=== PATIENT | male | born 1995 | race Caucasian/White ===

== ENCOUNTER 2016-08-21 22:01 | Emergency (ER) | payer BC ==
[~2016-08-21] VITALS: Ht 188 cm; Wt 76.0 kg
[2016-08-21 22:10] VITALS: TEMP 36.7; Ht 188 cm; Wt 76.0 kg
[2016-08-22] VITALS: O2SAT 99
[2016-08-22] MEDS ORDERED: SODIUM CHLORIDE 0.9% 1000ML 1,000 ML IV ONE
[2016-08-22] MEDS ORDERED: LORAZEPAM 2 MG/ML 1 ML VIAL IV STA
[2016-08-22 00:35] LABS: BASO % 0.4 %; BASO ABS # 0.04 K/uL (0-0.2); COMPLETE YES; EOS % 0.7 %; HEMATOCRIT 47.2 % (42-52); IG% 0.4 %; LYMPH % 27.1 %; LYMPH ABS # 2.56 K/uL (1.2-3.4); MEAN CELL VOLUME 90.6 fL (80-100); MEAN CORPUSCULAR HEMOGLOBIN 32.6 pg (25-34); MEAN PLATELET VOLUME 9.7 fL (7.4-10.4); MONO % 8.1 %; NEUT % 63.3 %; PLATELET COUNT 243 K/uL (130-400); RED BLOOD COUNT 5.21 M/uL (4.7-6.1); WHITE BLOOD COUNT 9.44 K/uL (4.8-10.8)
[2016-08-22 00:45] LABS: POINT OF CARE TROPONIN I 0.02 ng/ml (0-0.045)
[2016-08-22 00:53] LABS: BUN/CREATININE RATIO 9.6 (10-20); CALCIUM 9.6 mg/dl (8.5-10.1); CREATININE 1.1 mg/dl (0.60-1.40); MAGNESIUM 2.2 mg/dl (1.8-2.4); POTASSIUM 3.7 mmol/L (3.5-5.1)
[2016-08-22 01:04] LABS: ALB/GLOB RATIO 1.6 (0.9-2); THYROID STIMULATING HORMONE 1.77 uIu/ml (0.300-4.500)
[2016-08-22 01:26] LABS: LYME DISEASE AB IGG NEG (NEG); LYME DISEASE AB IGM NEG (NEG)
[2016-08-22 04:10] VITALS: BP 152/90; PULSE 92; O2SAT 97
--- NOTE | 2016-08-22 06:02 | EMERGENCY ROOM VISIT NOTE ---
History First contact with patient: 23:54 Chief Complaint: TACHYCARDIA Stated Complaint: RACING HEART Nursing Triage Summary: Pt reports in the past year a few times his heart feels like it is racing. Pt reports that it would last a few minutes then stop. Today patient reports that his heart did not stop racing. History of Present Illness The patient is a 21 year old male who presents to the Emergency Room with complaints of palpitations that began earlier this evening. The patient states that about 3 hours ago he felt like his heart was racing. He has had similar symptoms like this in the past, and he states that they often resolve after 4 or 5 minutes. His symptoms tonight lasted about 25 minutes before resolving. During this time he became very concerned and contacted his family who asked him to come to the ER for evaluation. The patient does not report other significant symptoms such as headache, lightheadedness, dizziness, neck pain, chest pain, shortness of breath, or abdominal pain. He does not report recent URI symptoms and does not take medication on regular basis. No recent travel history or risk factors for DVT/PE. He is currently asymptomatic. He rates his current discomfort a 5/10. Review of Systems More than 10 systems were reviewed and otherwise negative with the exception of history of present illness. Past Medical/Surgical History No chronic medical disease Family History No pertinent family history Social History Smoking Status: Never Smoker Occupation Status: [employer] student Current/Historical Medications No Active Prescriptions or Reported Meds Allergies Coded Allergies: No Known Allergies (Unverified , 08/21/16) Physical Exam Vital Signs Date Time Temp Pulse Resp B/P Pulse Ox O2 Delivery O2 Flow Rate FiO2 08/22/16 04:10 92 18 152/90 97 08/22/16 03:17 81 19 164/91 96 Room Air 08/22/16 01:17 94 19 168/89 97 Room Air 08/22/16 00:27 Room Air 08/22/16 00:00 99 08/22/16 00:00 99 Room Air 08/21/16 23:58 99 20 169/102 99 Room Air 08/21/16 22:10 36.7 98 16 172/102 98 Room Air Pain Rating (0-10): 0 Physical Exam VITALS: Vitals are noted on the nurse's note and reviewed by myself. Vital signs stable. GENERAL: Well-developed, well-nourished, white male, who is in no acute distress and resting comfortably. Patient is cooperative with the examination. HEAD: Normocephalic atraumatic. EARS: External ear normal. External auditory canals clear, tympanic membranes pearly aldridge without erythema or effusion bilaterally. EYES: Pupils equal round and reactive to light and accommodation. Conjunctivae without injection, sclerae without icterus. Extraocular movements intact. NOSE: Patent, turbinates without inflammation or discharge. MOUTH: Mucous membranes moist. Tonsils are not enlarged. Pharynx without erythema, blood, or exudate. Uvula midline. Airway patent. NECK: Supple without nuchal rigidity. No lymphadenopathy. No thyromegaly. Cervical spine is nontender. HEART: Regular rate and rhythm without murmurs gallops or rubs. LUNGS: Clear to auscultation bilaterally without wheezes, rales or rhonchi. No retractions or accessory muscle use. ABDOMEN: Positive normal bowel sounds x 4. Soft, nontender, without masses or organomegaly. No guarding or rebound tenderness. MUSCULOSKELETAL: No muscle atrophy, erythema, or edema noted. Full range of motion without joint tenderness in all extremities. No tenderness to palpation. Normal gait. Strength 5/5 throughout. NEURO: Patient was alert and oriented to person place and time. CN II through XII grossly intact. Deep tendon reflexes 2+ throughout. No focal neurological deficits SKIN: The skin was without rashes, erythema, edema, or bruising. Capillary reflex less than 2 seconds. Medical Decision & Procedures Laboratory Results 08/22/16 00:20 Red Blood Count 5.21, Mean Corpuscular Volume 90.6, Mean Corpuscular Hemoglobin 32.6, Mean Corpuscular Hemoglobin Concent 36.0, Mean Platelet Volume 9.7, Neutrophils (%) (Auto) 63.3, Lymphocytes (%) (Auto) 27.1, Monocytes (%) (Auto) 8.1, Eosinophils (%) (Auto) 0.7, Basophils (%) (Auto) 0.4, Neutrophils # (Auto) 5.97, Lymphocytes # (Auto) 2.56, Monocytes # (Auto) 0.76, Eosinophils # (Auto) 0.07, Basophils # (Auto) 0.04 08/22/16 00:20 Test 08/22/16 00:20 08/22/16 00:08/22/16 01:57 White Blood Count 9.44 K/uL (4.8-10.8) Red Blood Count 5.21 M/uL (4.7-6.1) Hemoglobin 17.0 g/dL (14.0-18.0) Hematocrit 47.2 % (42-52) Mean Corpuscular Volume 90.6 fL (80-100) Mean Corpuscular Hemoglobin 32.6 pg (25-34) Mean Corpuscular Hemoglobin Concent 36.0 g/dl (32-36) Platelet Count 243 K/uL (130-400) Mean Platelet Volume 9.7 fL (7.4-10.4) Neutrophils (%) (Auto) 63.3 % Lymphocytes (%) (Auto) 27.1 % Monocytes (%) (Auto) 8.1 % Eosinophils (%) (Auto) 0.7 % Basophils (%) (Auto) 0.4 % Neutrophils # (Auto) 5.97 K/uL (1.4-6.5) Lymphocytes # (Auto) 2.56 K/uL (1.2-3.4) Monocytes # (Auto) 0.76 K/uL (0.11-0.59) Eosinophils # (Auto) 0.07 K/uL (0-0.5) Basophils # (Auto) 0.04 K/uL (0-0.2) RDW Standard Deviation 41.2 fL (36.4-46.3) RDW Coefficient of Variation 12.5 % (11.5-14.5) Immature Granulocyte % (Auto) 0.4 % Immature Granulocyte # (Auto) 0.04 K/uL (0.00-0.02) Anion Gap 9.0 mmol/L (3-11) Est Creatinine Clear Calc Drug Dose 114.2 ml/min Estimated GFR () 110.6 Estimated GFR (Non- 95.5 BUN/Creatinine Ratio 9.6 (10-20) Calcium Level 9.6 mg/dl (8.5-10.1) Magnesium Level 2.2 mg/dl (1.8-2.4) Total Bilirubin 1.1 mg/dl (0.2-1) Aspartate Amino Transf (AST/SGOT) 12 U/L (15-37) Alanine Aminotransferase (ALT/SGPT) 24 U/L (12-78) Alkaline Phosphatase 71 U/L (45-117) Total Protein 8.2 gm/dl (6.4-8.2) Albumin 5.1 gm/dl (3.4-5.0) Globulin 3.1 gm/dl (2.5-4.0) Albumin/Globulin Ratio 1.6 (0.9-2) Lipase 98 U/L (73-393) Thyroid Stimulating Hormone (TSH) 1.770 uIu/ml (0.300-4.500) Lyme Disease IgG Antibody NEG (NEG) Lyme Disease IgM Antibody NEG (NEG) Bedside D-Dimer 6 ng/mlFEU (0-450) Bedside Troponin I 0.000 ng/ml (0-0.045) Medications Administered Medications (Trade) Dose Ordered Sig/Cris Route Start Time Stop Time Status Last Admin Dose Admin Sodium Chloride (Nss 1000ml) 1,000 ml @ 999 mls/hr Q1H1M ONCE IV 08/22/16 00:00 08/22/16 01:00 DC 08/22/16 00:40 999 MLS/HR Lorazepam (Ativan Inj) 1 mg NOW STAT IV 08/22/16 00:00 08/22/16 00:02 DC 08/22/16 00:39 1 MG ED Course Physical exam and history were performed. Nursing notes and EMR were reviewed. Patient appears to have episodes of palpitations that appeared to have resolved prior to arrival. EKG was performed and was normal sinus rhythm at 87 beats minute without evidence of ischemia or ectopy. IV access was established and labs were obtained. Chest x-ray was performed. The patient was hydrated and medicated as above. The patient was reevaluated multiple times with course of his stay. His blood work is as above and was reviewed. He does not have a significantly elevated white blood cell count, gross anemia, bandemia, or significant electrolyte imbalance. Lipase and transaminases are nondiagnostic. Troponin 2 is negative. D-dimer is negative. The patient's x-ray appears to show a significant amount of gas on the chest x- ray. Because of this I did elect to perform an abdominal series which was reviewed by myself and my attending physician. We do not see obvious signs of free air or obstructive process. Overall the patient appears stable for discharge home. His palpitations do not appear to correlate with an acute cardiopulmonary event. The patient symptoms could be related to stress or anxiety. I cannot rule out dysrhythmic events, however he was in normal sinus rhythm for several hours on the residential monitor. Because of this I do recommend he follow with his PCP in the next few days. The patient was otherwise invited back to the ER with any new, worsening, or concerning symptoms. The chart was completed utilizing [employer] Speech Voice Recognition Software. Grammatical errors, random word insertions, pronoun errors, and incomplete sentences are an occasional consequence of this system due to software limitations, ambient noise, and hardware issues. Any formal questions or concerns about the content, text, or information contained within the body of this dictation should be directly addressed to the provider for clarification. . Medical Decision Differential diagnosis includes, but is not limited to: Myocardial infarction, dysrhythmia, pericarditis, pneumothorax, aortic aneurysm/dissection, DVT/PE, anxiety, GERD, PUD, electrolyte imbalance, thyroid disorder, pneumonia, bronchitis, pancreatitis, and others Impression Primary Impression: Palpitations Departure Information Dispostion Home / Self-Care Condition GOOD Prescriptions No Active Prescriptions or Reported Meds Forms WORK / SCHOOL INSTRUCTIONS, HOME CARE DOCUMENTATION FORM, IMPORTANT VISIT INFORMATION Patient Instructions My [facility] Additional Instructions You were seen and evaluated today on an emergency basis only. This is not a substitute for, or an effort to provide, complete comprehensive medical care. It is not possible to recognize and treat all injuries or illnesses in a single emergency department visit. For this reason it is recommended that you followup with your primary physician or [facility] the next few days for recheck of your condition. Drink plenty of fluids and remain well hydrated. Avoid caffeine, nicotine, and alcohol as these can cause her symptoms. You are welcome to return to the emergency department anytime with new, worsening, or concerning symptoms.
--- NOTE | 2016-08-22 08:27 | DIAGNOSTIC IMAGING REPORT ---
CHEST ONE VIEW PORTABLE HISTORY: palpitations COMPARISON: None. FINDINGS: The lungs are clear. Cardiac silhouette is normal in size. No pleural effusions. No pneumothorax. IMPRESSION: No acute process. Electronically signed by: Lion Alvarado M.D. 08/22/2016 8:26 AM Dictated Date/Time: 08/22/2016 8:25 AM
--- NOTE | 2016-08-22 08:29 | DIAGNOSTIC IMAGING REPORT ---
ABDOMEN 2 VIEWS HISTORY: palpitations COMPARISON: None. FINDINGS: The lung bases are clear. No pneumoperitoneum. No pneumatosis. No renal calculi. Multiple mildly distended gas-filled loops of large and small bowel seen throughout the abdomen. IMPRESSION: Multiple mildly distended gas-filled loops of large and small bowel seen throughout the abdomen. This favors a mild ileus. Electronically signed by: Lion Alvarado M.D. 08/22/2016 8:27 AM Dictated Date/Time: 08/22/2016 8:26 AM
== END 2016-08-22 04:02 | disposition home or self-care (01) ==
LOC: C.EDB 22:04
DX: R00.2 Palpitations (principal)

== ENCOUNTER 2017-01-09 22:22 | Emergency (ER) | payer BC ==
[~2017-01-09] VITALS: Ht 188 cm; Wt 76.0 kg
[2017-01-09 22:28] VITALS: TEMP 36.3; Ht 188 cm; Wt 76.0 kg
[2017-01-09] MEDS ORDERED: SODIUM CHLORIDE 0.9% 1000ML 1,000 ML IV STA ×2 (22:47)
[2017-01-09 22:55] VITALS: O2SAT 98
[2017-01-09 23:11] LABS: BASO % 0.1 %; BASO ABS # 0.01 K/uL (0-0.2); COMPLETE YES; EOS % 0.4 %; HEMATOCRIT 45.9 % (42-52); IG% 0.6 %; LYMPH % 24.3 %; MEAN CORPUSCULAR HEMOGLOBIN 32.2 pg (25-34); MEAN CORPUSCULAR HGB CONC 36.2 g/dl (32-36); MEAN PLATELET VOLUME 9.6 fL (7.4-10.4); MONO % 3.9 %; NEUT % 70.7 %; PLATELET COUNT 249 K/uL (130-400); RED BLOOD COUNT 5.16 M/uL (4.7-6.1); WHITE BLOOD COUNT 8.24 K/uL (4.8-10.8)
[2017-01-09 23:17] LABS: POINT OF CARE TROPONIN I < 0.030 ng/ml (0-0.045)
[2017-01-09 23:31] LABS: BUN/CREATININE RATIO 13.3 (10-20); CALCIUM 9.4 mg/dl (8.5-10.1); CREATININE 1.3 mg/dl (0.60-1.40); MAGNESIUM 2.3 mg/dl (1.8-2.4); POTASSIUM 3.7 mmol/L (3.5-5.1)
[2017-01-09 23:40] LABS: THYROID STIMULATING HORMONE 1.09 uIu/ml (0.300-4.500)
--- NOTE | 2017-01-10 02:40 | EMERGENCY ROOM VISIT NOTE ---
History First contact with patient: 22:42 Chief Complaint: RAPID HEART RATE Stated Complaint: HEART RACING FOR AN HOUR Nursing Triage Summary: pt states heart has been racing for past hour, drinking beer and vodka today, denies drugs. little sob with it History of Present Illness The patient is a 21 year old male who presents to the Emergency Room with complaints of racing heart and chest discomfort for the past few hours. Patient states he's been drinking some alcohol today but does not appear overly intoxicated. No stimulants. No caffeinated beverages. he had a similar episode a few months ago and did not follow-up. No history of Holter monitor. Patient denies fevers, abdominal pain, leg pain or swelling, back pain, numbness , tingling. There is a family history of heart disease. No blood clots. Review of Systems See HPI for pertinent positives & negatives. A total of 10 systems reviewed and were otherwise negative. Past Medical/Surgical History None Social History Smoking Status: Never Smoker Smokeless Tobacco Use: No Alcohol Use: occasionally Drug Use: none Occupation Status: [employer] student Current/Historical Medications No Active Prescriptions or Reported Meds Physical Exam Vital Signs Date Time Temp Pulse Resp B/P (MAP) Pulse Ox O2 Delivery O2 Flow Rate FiO2 01/10/17 02:00 94 22 169/99 98 01/10/17 01:30 89 16 154/92 97 01/10/17 01:00 98 20 153/87 97 01/10/17 00:31 149/85 01/10/17 00:30 99 24 153/86 97 01/10/17 00:00 104 16 155/97 01/09/17 23:30 106 24 99 01/09/17 23:07 98 01/09/17 23:01 160/91 01/09/17 22:55 98 Room Air 01/09/17 22:55 98 Room Air 01/09/17 22:28 36.3 102 18 155/81 98 Room Air Physical Exam VITALS: Vitals are noted on the nurse's note and reviewed by myself. Vital signs mildly tachycardic. GENERAL: Pleasant male anxious-appearing, in no acute distress, nondiaphoretic, well-developed well-nourished. SKIN: The skin was without rashes, erythema, edema, or bruising. There is no tenting of the skin. Capillary reflex less than 2 seconds. HEAD: Normocephalic atraumatic. EARS: External auditory canals clear, tympanic membranes pearly aldridge without erythema or effusion bilaterally. EYES: Pupils equal round and reactive to light and accommodation. Conjunctivae without injection, sclerae without icterus. Extraocular movements intact. NOSE: Patent, turbinates without inflammation or discharge. MOUTH: Mucous membranes moist. Pharynx without erythema or exudate. Uvula midline. Airway patent. Tongue does not deviate. NECK: Supple without nuchal rigidity. No lymphadenopathy. No thyromegaly. Cervical spine is nontender. No JVD. HEART: Tachycardic Regular rate and rhythm without murmurs gallops or rubs. LUNGS: Clear to auscultation bilaterally without wheezes, rales or rhonchi. No dullness to percussion. No retractions or accessory muscle use. ABDOMEN: Positive bowel sounds x 4. Normal tympanic percussion. Soft, nontender, without masses or organomegaly. Mccallum sign negative. No guarding or rebound tenderness. MUSCULOSKELETAL: No muscle atrophy, erythema, or edema noted. NEURO: Patient was alert and oriented to person place and time. Normal sensation to light and sharp touch. No focal neurological deficits. Medical Decision & Procedures Laboratory Results 01/09/17 22:50 Red Blood Count 5.16, Mean Corpuscular Volume 89.0, Mean Corpuscular Hemoglobin 32.2, Mean Corpuscular Hemoglobin Concent 36.2, Mean Platelet Volume 9.6, Neutrophils (%) (Auto) 70.7, Lymphocytes (%) (Auto) 24.3, Monocytes (%) (Auto) 3.9, Eosinophils (%) (Auto) 0.4, Basophils (%) (Auto) 0.1, Neutrophils # (Auto) 5.83, Lymphocytes # (Auto) 2.00, Monocytes # (Auto) 0.32, Eosinophils # (Auto) 0.03, Basophils # (Auto) 0.01 01/09/17 22:50 Test 01/09/17 22:50 01/09/17 22:58 01/10/17 02:13 White Blood Count 8.24 K/uL (4.8-10.8) Red Blood Count 5.16 M/uL (4.7-6.1) Hemoglobin 16.6 g/dL (14.0-18.0) Hematocrit 45.9 % (42-52) Mean Corpuscular Volume 89.0 fL (80-100) Mean Corpuscular Hemoglobin 32.2 pg (25-34) Mean Corpuscular Hemoglobin Concent 36.2 g/dl (32-36) Platelet Count 249 K/uL (130-400) Mean Platelet Volume 9.6 fL (7.4-10.4) Neutrophils (%) (Auto) 70.7 % Lymphocytes (%) (Auto) 24.3 % Monocytes (%) (Auto) 3.9 % Eosinophils (%) (Auto) 0.4 % Basophils (%) (Auto) 0.1 % Neutrophils # (Auto) 5.83 K/uL (1.4-6.5) Lymphocytes # (Auto) 2.00 K/uL (1.2-3.4) Monocytes # (Auto) 0.32 K/uL (0.11-0.59) Eosinophils # (Auto) 0.03 K/uL (0-0.5) Basophils # (Auto) 0.01 K/uL (0-0.2) RDW Standard Deviation 40.1 fL (36.4-46.3) RDW Coefficient of Variation 12.4 % (11.5-14.5) Immature Granulocyte % (Auto) 0.6 % Immature Granulocyte # (Auto) 0.05 K/uL (0.00-0.02) Anion Gap 10.0 mmol/L (3-11) Est Creatinine Clear Calc Drug Dose 96.6 ml/min Estimated GFR () 90.4 Estimated GFR (Non- 78.0 BUN/Creatinine Ratio 13.3 (10-20) Calcium Level 9.4 mg/dl (8.5-10.1) Magnesium Level 2.3 mg/dl (1.8-2.4) Total Bilirubin 0.7 mg/dl (0.2-1) Direct Bilirubin 0.2 mg/dl (0-0.2) Aspartate Amino Transf (AST/SGOT) 18 U/L (15-37) Alanine Aminotransferase (ALT/SGPT) 23 U/L (12-78) Alkaline Phosphatase 63 U/L (45-117) Total Creatine Kinase 177 U/L (39-308) Creatine Kinase MB 1.8 ng/ml (0.5-3.6) Creatine Kinase MB Ratio 1.0 (0-3.0) Total Protein 8.4 gm/dl (6.4-8.2) Albumin 5.1 gm/dl (3.4-5.0) Lipase 87 U/L (73-393) Thyroid Stimulating Hormone (TSH) 1.090 uIu/ml (0.300-4.500) Ethyl Alcohol mg/dL 107.0 mg/dl (0-3) Bedside D-Dimer 22 ng/mlFEU (0-450) Bedside Troponin I < 0.030 ng/ml (0-0.045) Medications Administered Medications (Trade) Dose Ordered Sig/Cris Route Start Time Stop Time Status Last Admin Dose Admin Sodium Chloride 1,000 ml @ 999 mls/hr Q1H1M STAT IV 01/09/17 22:47 01/09/17 23:47 DC 01/09/17 23:02 999 MLS/HR Sodium Chloride 1,000 ml @ 125 mls/hr Q8H STAT IV 01/09/17 22:47 01/10/17 06:46 01/10/17 00:31 125 MLS/HR ED Course Prior records/ancillary studies reviewed. Triage Nursing notes reviewed. Additional history obtained from friend The patient's history was concerning for palpitations. Differential diagnosis: Etiologies such as premature contractions, electrolyte abnormality, cardiac dysrhythmia, thyroid dysfunction, pulmonary embolism, infection, gastrointestinal, as well as others were entertained. Physical examination: Benign as above. ER treatment provided: IV fluids On reassessment the patient felt better. Diagnostic interpretation by me: Cardiac monitoring revealed no dysrhythmia. Normal sinus, normal intervals, no acute ST-T wave changes. Impression normal sinus rhythm interpreted by myself The electrocardiogram was negative for pathologic change. The labs revealed negative troponin 2 negative d-dimer, euthyroid Imaging studies: Chest x-ray with no acute consolidation, pneumothorax or free air per my interpretation. This appears to be consistent with palpitations. Patient had unremarkable workup as above. He denies chest discomfort and had unremarkable workup for chest pain rule out also. He was strongly encouraged to follow-up health services for outpatient Holter monitor for recurrent palpitation symptoms. He was advised to return to the ER immediately for chest pain, racing heart, worsening signs or symptoms or as needed. By the evaluation outlined above emergent etiologies such as electrolyte abnormality, cardiac dysrhythmia, thyroid dysfunction, pulmonary embolism, infection, as well as others were deemed relatively unlikely. The pt informed about the findings as listed above. All questions were answered and pleased with the treatment. Return instructions were outlined and the patient was discharged in stable condition. Case reviewed with my attending. Referral: The patient was referred back to their primary care physician for follow-up in 2 to 3 days for a recheck of the current condition Medical Decision As above Medication Reconcilliation Current Medication List: was personally reviewed by me Blood Pressure Screening Patient's blood pressure: Normal blood pressure Impression Primary Impression: Palpitations Departure Information Dispostion Home / Self-Care Condition GOOD Prescriptions No Active Prescriptions or Reported Meds Referrals No Doctor, Assigned (PCP) Patient Instructions My [facility] Additional Instructions Recommend outpatient Holter monitor. Health services can arrange this for you. Decrease caffeine intake. Decrease stress. Ibuprofen(Motrin, Advil) may be used for fever or pain. Use 600mg every six hours as needed. Take with food. Avoid using more than 2400mg in a 24 hour period. Do not use 2400mg per day for more than three consecutive days without physician direction. Prolonged inappropriate use can lead to stomach upset or ulcers. (AND/OR) Acetaminophen(Tylenol) may be used for fever or pain. Use 1000mg every six hours as needed. Avoid using more than 3000mg in a 24 hour period. Rest and drink plenty of fluids as tolerated. Continue current medications. Avoid strenuous activities and anything that worsens your pain. Resume normal activities once your symptoms resolve. Return to the ER immediately for worsening or persistent racing heart, abdominal pain, vomiting, fevers, chest pains, difficulty breathing, worsening of your condition, or as needed. Follow up with your primary physician/health services in 2-3 days for a recheck of your current condition.
[2017-01-10 03:25] VITALS: BP 156/91; PULSE 102; O2SAT 96
--- NOTE | 2017-01-10 05:35 | DIAGNOSTIC IMAGING REPORT ---
CHEST ONE VIEW PORTABLE CLINICAL HISTORY: 21 years-old Male presenting with CHEST PAIN. TECHNIQUE: Portable upright AP view of the chest was obtained. COMPARISON: 08/22/2016. FINDINGS: Cardiomediastinal silhouette normal. Lungs and pleural spaces clear. Osseous structures normal. Upper abdomen normal. IMPRESSION: 1. No acute cardiopulmonary disease. Electronically signed by: Gee Nascimento M.D. 01/10/2017 5:34 AM Dictated Date/Time: 01/10/2017 5:33 AM
== END 2017-01-10 03:27 | disposition home or self-care (01) ==
LOC: C.EDB 22:23 → C.EDA 01-10 03:27
DX: R00.2 Palpitations (principal)

== ENCOUNTER → 2017-01-15 | Outpatient (CLI) | payer BC ==
--- NOTE | 2017-01-19 14:53 | HOLTER SCAN ---
REFERRING PHYSICIAN: Radha Gayle MD. INTERPRETING PHYSICIAN: Amish Miranda MD. PROCEDURE: Holter monitor. CLINICAL INDICATIONS: Palpitations. INTERPRETATION: 1. The patient was monitored for a total of 48 hours. The underlying rhythm throughout the study was sinus rhythm. Episodes of sinus arrhythmia. Average heart rate 73 beats per minute. Minimum heart rate 43 beats per minute. Maximum heart rate 166 beats per minute. 2. Normal atrioventricular and ventricular conduction. 3. Normal diurnal heart rate variation. 4. Rare premature ventricular beats. Five were counted during the entire recording. No ventricular ectopy more complex than this. 5. Rare premature supraventricular beats. 12 were counted during the study. No supraventricular ectopy more complex than this. 6. No inappropriate pauses or abnormal bradyarrhythmias. 7. No symptoms reported in the patient diary. CONCLUSIONS: 1. Sinus rhythm with episodes of sinus arrhythmia. 2. Rare premature ventricular and supraventricular beats.
== END | disposition home or self-care (01) ==
LOC: C.CPL 11:00
PROVIDERS: ATTEND Internal Medicine
DX: R00.2 Palpitations (principal)